=== PATIENT | female | born 2000 | race Caucasian/White ===

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

== ENCOUNTER 2020-07-01 16:53 | Emergency (ER) | payer BC, OTHER ==
[2020-07-01] MEDS ORDERED: Ibuprofen 400 MG TAB ONE (18:21)
== END 2020-07-01 19:06 | disposition home or self-care (01) ==
LOC: MADERS 16:53
DX: J02.9 Acute pharyngitis, unspecified (principal)
CPT/HCPCS: 87081; 87430; 99283

== ENCOUNTER 2020-08-12 07:49 | Emergency (ER) | payer OTHER, SELFPAY ==
[2020-08-12 08:42] LABS: Pregnancy Test - Urine (BHCG) Negative (Negative); Pregu Control Background? CLEAR/WHITE (CLR/WHITE); Pregu Control Bar Appear? YES (CONTROL BAR); Specific Gravity 1.024 (1.002-1.036)
[2020-08-12 08:47] LABS: Amphetamine Not Detected (NotDetected); Barbiturates Screen Not Detected (NotDetected); Benzodiazepine Screen Not Detected (NotDetected); Cocaine Metabolite Screen Not Detected (NotDetected); Methadone Not Detected (NotDetected); Methamphetamine Not Detected (NotDetected); Opiate Screen Not Detected (NotDetected); Oxycodone Screen Not Detected (NotDetected); Phencyclidine (PCP) Not Detected (NotDetected); THC/Cannabinoid Screen Not Detected (NotDetected); Tricyclic Screen Not Detected (NotDetected)
[2020-08-12 08:48] LABS: Medtox Control Line Valid? VALID (VALID)
[2020-08-12] MEDS ORDERED: Acetaminophen 500 MG TAB ONE (09:02)
== END 2020-08-12 09:04 | disposition home or self-care (01) ==
LOC: MADERS 07:49
DX: I10 Essential (primary) hypertension (principal)
CPT/HCPCS: 80306; 81025; 99284

== ENCOUNTER 2020-10-15 16:47 | Emergency (ER) | payer BC, SELFPAY ==
[2020-10-15] MEDS ORDERED: Ketorolac Tromethamine 60 MG/2 ML VIAL ONE (17:38)
== END 2020-10-15 18:20 | disposition home or self-care (01) ==
LOC: MADERS 16:47
DX: M94.0 Chondrocostal junction syndrome [Tietze] (principal); E66.9 Obesity, unspecified
CPT/HCPCS: 93005; 94760; 96372; J1885

== ENCOUNTER 2022-07-17 20:14 | Emergency (ER) | payer BC, OTHER ==
[2022-07-17 20:45] LABS: #Basophils 0.1 thou/uL (0.0-0.2); #Eosinphils 0.2 thou/uL (0.0-0.7); #Lymphocytes 1.5 thou/uL (1.20-3.40); #Monocytes 0.4 thou/uL (0.11-0.59); #Neutrophils 5.7 thou/uL (1.40-6.50); %Basophils 0.8 % (0.0-1.0); %Eosinophils 1.9 % (0.0-10.0); %Lymphocytes 19.5 % (21.0-51.0); %Neutrophils 72.8 % (42.0-75.0); Hemoglobin 14.2 g/dL (12.0-16.0); Mean Corpuscular HGB CONC 32.9 g/dL (32.0-36.0); Mean Corpuscular Hemoglobin 26.3 pg (27.0-31.0); Mean Corpuscular Volume 79.9 fl (78.0-98.0); Mean Platelet Volume 7.1 fL (7.4-10.4); Platelet Count 279 10x3/uL (130-400); RBC Distribution Width 12.9 % (11.5-14.5); White Blood Cell (WBC) Count 7.9 10x3/uL (4.8-10.8)
[2022-07-17 21:01] LABS: Anion Gap 13 mmol/L (10-20); BUN (Urea Nitrogen) 11 mg/dL (7.0-18.7); Calc. Creatinine Clearance 0 mL/min (70-130); Calcium 9.6 mg/dL (7.8-10.44); Carbon Dioxide 23 mmol/L (22-29); Chloride 107 mmol/L (98-107); Estimated GFR 112; Glucose 96 mg/dL (70-105); Potassium 3.8 mmol/L (3.5-5.1); Sodium 139 mmol/L (136-145)
[2022-07-17 21:14] LABS: BHCG - Serum Negative (NEGATIVE); Pregs Control Background? CLEAR/WHITE (CLR/WHITE); Pregs Control Bar Appear? YES (CONTROL BAR)
== END 2022-07-17 21:38 | disposition home or self-care (01) ==
LOC: MADERS 20:14
DX: N93.9 Abnormal uterine and vaginal bleeding, unspecified (principal); E66.9 Obesity, unspecified
CPT/HCPCS: 36415; 80048; 84703; 85025; 99284

== ENCOUNTER 2023-03-09 19:15 | Emergency (ER) | payer OTHER, BC ==
[2023-03-09] MEDS ORDERED: Orphenadrine Citrate 60 MG/2 ML VIAL ONE (20:02)
== END 2023-03-09 21:20 | disposition home or self-care (01) ==
LOC: MADERS 19:15
DX: S39.012A Strain of muscle, fascia and tendon of lower back, initial encounter (principal); W19.XXXA Unspecified fall, initial encounter
CPT/HCPCS: 72100; 96372; J2360

== ENCOUNTER 2023-11-22 02:32 | Emergency (ER) | payer BC ==
[2023-11-22 03:56] LABS: Influenza A by NAA Not Detected (NotDetected); Influenza B by NAA Not Detected (NotDetected); SARS-CoV-2 NAA Rapid Test Not Detected (NotDetected)
== END 2023-11-22 03:56 | disposition home or self-care (01) ==
LOC: MADERS 02:32
DX: J02.9 Acute pharyngitis, unspecified (principal); R05.9 Cough, unspecified; I10 Essential (primary) hypertension
CPT/HCPCS: 87081; 87430; 99283

== ENCOUNTER 2024-06-07 06:13 | Emergency (ER) | payer BC ==
[2024-06-07 07:00] LABS: #Basophils 0.2 thou/uL (0.0-0.2); #Eosinophils 0.2 thou/uL (0.0-0.7); #Lymphocytes 3.3 thou/uL (1.20-3.40); #Monocytes 0.6 thou/uL (0.11-0.59); #Neutrophils 7.3 thou/uL (1.40-6.50); %Basophils 1.6 % (0.0-1.0); %Eosinophils 1.4 % (0.0-10.0); %Lymphocytes 28.4 % (21.0-51.0); %Monocytes 5.3 % (0.0-10.0); %Neutrophils 63.4 % (42.0-75.0); Hematocrit 43.4 % (36.0-47.0); Hemoglobin 13.5 g/dL (12.0-16.0); Mean Corpuscular HGB CONC 31.2 g/dL (32.0-36.0); Mean Corpuscular Hemoglobin 25.1 pg (27.0-31.0); Mean Corpuscular Volume 80.4 fl (78.0-98.0); Mean Platelet Volume 7.4 fL (7.4-10.4); Platelet Count 358 10x3/uL (130-400); RBC Distribution Width 12.9 % (11.5-14.5); White Blood Cell (WBC) Count 11.5 10x3/uL (4.8-10.8)
[2024-06-07 07:06] LABS: BHCG - Serum Negative (NEGATIVE); Pregs Control Background? CLEAR/WHITE (CLR/WHITE); Pregs Control Bar Appear? YES (CONTROL BAR)
[2024-06-07 07:12] LABS: ALT (SGPT) 12 U/L (8-55); AST (SGOT) 14 U/L (5-34); Alkaline Phosphatase 105 U/L (40-110); Anion Gap 15 mmol/L (10-20); BUN (Urea Nitrogen) 12 mg/dL (7.0-18.7); Bilirubin, Total 0.3 mg/dL (0.2-1.2); Calc. Creatinine Clearance 0 mL/min (70-130); Calcium 9.8 mg/dL (7.8-10.44); Carbon Dioxide 21 mmol/L (22-29); Chloride 107 mmol/L (98-107); Estimated GFR 97; Globulin 3.6 g/dL (2.4-3.5); Glucose 93 mg/dL (70-105); Potassium 3.6 mmol/L (3.5-5.1); Protein, Total 7.6 g/dL (6.0-8.3); Sodium 139 mmol/L (136-145)
[2024-06-07 07:45] LABS: Bilirubin Negative (Negative); Blood, Urine Large (Negative); Clarity Slightly Cloudy (Clear); Glucose, Urine (Dipstick) Negative (Negative); Ketone, Urine Negative (Negative); Leukocyte Negative (Negative); Nitrite Negative (Negative); Protein, Urine (Dipstick) Negative (Neg-Trace)
[2024-06-07 07:52] LABS: Specific Gravity, Urine 1.031 (1.002-1.036)
[2024-06-07 07:59] LABS: Bacteria/HPF Rare-Few HPF (None Seen); CAUTI Indications for Culture Pelvic or flank pain; RBC/HPF Greater than 50 HPF (0-3); Squamous Epithelial 0-3 HPF (0-3); WBC/HPF 0-3 HPF (0-3)
[2024-06-07 08:00] LABS: Urine Culture Reflex No No
[2024-06-07] MEDS ORDERED: Iopamidol 370 76% 100 ML VIAL ONE (09:00)
== END 2024-06-07 09:07 | disposition home or self-care (01) ==
LOC: MADERS 06:13
DX: K59.00 Constipation, unspecified (principal); K44.9 Diaphragmatic hernia without obstruction or gangrene; N92.0 Excessive and frequent menstruation with regular cycle; I10 Essential (primary) hypertension
CPT/HCPCS: 74177; 80053; 81001; 84703; 85025; Q9967